=== PATIENT | female | born 2000 | race Caucasian/White ===

== ENCOUNTER 2021-01-01 16:23 | Emergency (ER) | payer BC ==
[~2021-01-01] VITALS: Ht 170.2 cm; Wt 72.7 kg
[2021-01-01 17:24] VITALS: TEMP 98.6
[2021-01-01 18:07] LABS: COLLECTION METHOD CLEAN CATCH
[2021-01-01 18:12] LABS: PH 6 (5-8); SQUAMOUS EPITHELIAL 0-2 /hpf; URINE APPEARANCE Clear; URINE BACTERIA None Seen /hpf; URINE BILIRUBIN Negative (NEGATIVE); URINE BLOOD Negative (NEGATIVE); URINE COLOR Straw; URINE GLUCOSE Negative (NEGATIVE); URINE KETONE Negative (NEGATIVE); URINE LEUKOCYTE ESTERASE Negative (NEGATIVE); URINE NITRATE Negative (NEGATIVE); URINE PROTEIN(semi-quant) Negative (NEGATIVE); URINE RBC None Seen /hpf; URINE UROBILINOGEN Negative (NEGATIVE)
[2021-01-01] MEDS ORDERED: FLAGYL500 MG PO (19:24)
[2021-01-01 19:46] VITALS: BP 136/70; PULSE 66
== END 2021-01-01 19:46 | disposition home or self-care (01) ==
LOC: COL.ER 16:23
PROVIDERS: Physician Assistant
DX: N76.0 Acute vaginitis (principal); Z88.0 Allergy status to penicillin
CPT/HCPCS: J0696